=== PATIENT | female | born 1970 | race Caucasian/White ===

== ENCOUNTER → 2017-11-21 | Day surgery (SDC) | payer OTHER | END | disposition home or self-care (01) | LOC: CIR.AMB 11-19 07:06 | DX: N87.1 Moderate cervical dysplasia (principal); N72 Inflammatory disease of cervix uteri ==

== ENCOUNTER 2021-12-06 06:27 | Day surgery (SDC) | payer OTHER ==
[~2021-12-06 06:27] MED LIST: VITAMIN D PO
== END 2021-12-06 15:15 | disposition home or self-care (01) ==
LOC: CIR.AMB 06:27
PROVIDERS: ATTEND Specialist
DX: D24.1 Benign neoplasm of right breast (principal); Z20.822 Contact with and (suspected) exposure to COVID-19; Z88.2 Allergy status to sulfonamides